=== PATIENT | female | born 2000 | race Caucasian/White ===

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

== ENCOUNTER 2021-01-02 15:41 | Emergency (ER) | payer OTHER, SELFPAY ==
--- NOTE | 2021-01-02 15:44 | ED.ANIMALBIT ---
HPI - Animal Bite General Chief Complaint: Animal Bite Stated Complaint: dog bit on face Time Seen by Provider: 01/02/21 15:45 Source: patient Mode of arrival: ambulatory Limitations: no limitations History of Present Illness HPI narrative: 20-year-old woman brought to the emergency department today by her boss after she was bit by a dog at her job today. 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 She states that she had the dog on the lesion was pulling the dog toward her when it lunged at her and bit her face. She denies any other injuries. She does not recall her last tetanus shot. complaint: animal bite Onset (ago): hour(s) (1) Animal: dog Description of animal: unknown animal and appeared well Mechanism: bite Location: face Pain description: sharp Context: other ( on a leash) Associated symptoms: bleeding Treatments prior to arrival: pressure Related Data Home Medications Medication Instructions Recorded Confirmed No Home Medications 01/02/21 01/02/21 Allergies Allergy/AdvReac Type Severity Reaction Status Date / Time No Known Allergies Allergy Verified 01/02/21 16:09 Review of Systems Review of Systems: All systems reviewed & are unremarkable except as noted in HPI and below Eyes: Eyes: Denies change in vision and Denies photophobia ENT: Denies nasal congestion and Denies sore throat Cardiovascular: Cardiovascular: Denies chest pain and Denies radiating jaw, neck or arm pain Respiratory: Respiratory: Denies cough and Denies dyspnea Gastrointestinal: Gastrointestinal: Denies nausea and Denies vomiting Integumentary/Breasts: Skin/Breast: Reports as per HPI, Denies pruritus, Denies erythema and Denies rash Neurologic: Denies vertigo, Denies dizziness, Denies syncope, Denies headache(s), Denies focal weakness and Denies numbness Hematologic/Lymphatic: Hematologic/Lymphatic: Denies easy bleeding and Denies easy bruising Allergic/Immunologic: Allergic/Immunologic: Denies lip swelling, Denies throat swelling and Denies tongue swelling PMFSH Past Medical History Medical History (Updated 01/02/21 @ 16:28 by Travis Solis MD) Patient denies medical problems Social History Social History Smoking status: Current some day smoker Gender identity (if verbalized by the patient): Female Exam Const: General: healthy appearing and alert Orientation/consciousness: patient oriented x3 Limitations: no limitations Other: moderate acute distress HENMT: Head: normal to inspection Ears: external ears normal, TM's normal bilaterally and EAC's normal Mouth: Yes moist mucous membranes Throat: posterior oropharynx normal Other: 1.5 cm through and through laceration of the left nasal area into the sidewall. There are 2 other smaller lacerations on the nose, some contusions under both eyes, and a 1.2 cm transverse laceration on the infraorbital cheek. There are other puncture wounds present on the right hinduism and elsewhere on the face. Eyes: Conjunctivae: conjunctivae normal Pupils: Equal, round and reactive pupils present EOM: EOMs intact bilaterally Direct Ophthalmoscopy: No photophobia Neck: Neck: normal visual inspection and no lymphadenopathy Resp: Effort & Inspection: normal respiratory effort and not labored Auscultation: clear to auscultation bilaterally, no rales, no rhonchi and no wheezes Cardio: Rate: regular rate Rhythm: regular rhythm Heart sounds: no murmurs Skin: General skin exam: normal color, no jaundice and no pallor Rashes: no rashes Other: Wounds as noted above. Neuro: General: patient oriented x3, moves all extremities, no focal motor deficits and CN's II-XI intact bilaterally Speech: normal speech Gait exam (Neuro): Normal gait present Extrem: General: normal to inspection and edema Psych: Appearance: grossly normal and well kempt Mental Status: mental status grossly normal Affect: normal affect Attitu
[2021-01-02 15:58] VITALS: BP 121/69; PULSE 77; RESP 20; TEMP 36.7; O2SAT 100
[2021-01-02] MEDS: HYDROcodone/acetaminophen (*CRX) 5-325 MG TABLET 1 TAB PO (16:13)
[2021-01-02 16:42] VITALS: BP 120/73; PULSE 61; RESP 20; TEMP 36.7; O2SAT 100
== END 2021-01-02 16:59 | disposition home or self-care (01) ==
PROVIDERS: Emergency Provider Emergency Medicine
DX: S01.21XA Laceration without foreign body of nose, initial encounter (principal); W54.0XXA Bitten by dog, initial encounter
CPT/HCPCS: 99282; 99283; A9270